=== PATIENT | female | born 1995 | race Caucasian/White ===

== ENCOUNTER 2023-08-12 11:37 | Emergency (ER) | payer OTHER ==
[2023-08-12 12:12] VITALS: PULSE 102; BMI 26.2
[2023-08-12] MEDS ORDERED: ALBUTEROL SO4 2.5/IPRATROPIUM 0.5 INH SOL 3 ML VIAL.NEB. NEB ONE ×3 (12:15→12:55)
[2023-08-12] MEDS: ALBUTEROL SO4 2.5/IPRATROPIUM 0.5 INH SOL 3 ML VIAL.NEB. NEB ONE (12:40)
[2023-08-12] MEDS: DEXAMETHASONE 4 MG TABLET (FP) PO ONE (12:40)
[2023-08-12] MEDS ORDERED: DEXAMETHASONE 4 MG TABLET (FP) ONE (12:45)
[2023-08-12 14:14] VITALS: BP 128/85; RESP 19; TEMP 98.2
== END 2023-08-12 14:54 | disposition home or self-care (01) ==
LOC: JER 11:37
PROC: 3E0F7GC Introduction of Other Therapeutic Substance into Respiratory Tract, Via Natural or Artificial Opening (ICD-10-PCS; principal; 2023-08-12)
DX: J45.909 Unspecified asthma, uncomplicated (principal); R06.02 Shortness of breath; R05.9 Cough, unspecified; Z20.822 Contact with and (suspected) exposure to COVID-19
CPT/HCPCS: 0241U-QW; 99283-25